=== PATIENT | male | born 1990 | race Caucasian/White ===

== ENCOUNTER 2017-01-13 07:50 | Emergency (ER) | payer OTHER ==
[~2017-01-13] VITALS: Ht 172.7 cm; Wt 104.3 kg
[2017-01-13] MEDS ORDERED: IBUPROFEN 800 MG TABLET PO ONE (08:15)
--- NOTE | 2017-01-13 08:24 | NUR ---
PT WAS EVALUATED BY DR KIMBALL. PT WAS D/C TO HOME AFTER ER MD EVALUATION. D/C INSTRUCTIONS GIVEN TO THE PT. PT DENIES PAIN. GAIT IS STABLE. NO S/S OF DISTRESS AT THIS TIME.
[2017-01-13 08:27] VITALS: BP 132/78
[2017-01-13] MEDS ORDERED: IBUPROFEN 800 MG TABLET ONE (08:28)
== END 2017-01-13 08:27 | disposition home or self-care (01) ==
LOC: ER 07:50
DX: S90.01XA Contusion of right ankle, initial encounter (principal); V89.2XXA Person injured in unspecified motor-vehicle accident, traffic, initial encounter; Y93.9 Activity, unspecified; Y92.413 State road as the place of occurrence of the external cause; Y99.9 Unspecified external cause status
CPT/HCPCS: 99282; A4663